=== PATIENT | female | born 1990 | race Caucasian/White ===

== ENCOUNTER → 2024-07-31 | Outpatient (CLI) | payer BC, SELFPAY ==
[2024-07-31 14:05] LABS: Collection Type, Urine Clean Catch
[2024-07-31 14:30] LABS: Basophils # (Auto) 0.1 Thou/mm3 (0.0-0.2); Basophils % (Auto) 1 % (0-2.5); Eosinophils # (Auto) 0.1 Thou/mm3 (0.0-0.5); Eosinophils % (Auto) 1 % (0-10); Hematocrit 36.4 % (36.0-46.0); Hemoglobin 12.1 g/dL (12.0-16.0); Immature Granulocytes % (Auto) 1 % (0-0); Immature Granulocytes Auto 0.05 Thou/mm3 (0.00-0.00); Lymphocytes # (Auto) 1.7 Thou/mm3 (1.0-4.8); Lymphocytes % (Auto) 16 % (10-50); Mean Corpuscular HGB Conc 33.2 g/dl (31.0-37.0); Mean Corpuscular Hemoglobin 26.7 pg (25.0-35.0); Mean Corpuscular Volume 80 fL (80-100); Monocytes # (Auto) 0.9 Thou/mm3 (0.0-0.8); Monocytes % (Auto) 9 % (0-12); Neutrophils % (Auto) 74 % (37-80); Nucleated Red Blood Cell % 0 /100 WBC (0); Platelet Count 213 Thou/mm3 (140-440); RDW Standard Deviation 41.8 fL (36.4-46.3); Red Blood Count 4.53 Miln/mm3 (4.00-5.20); White Blood Count 10.8 Thou/mm3 (3.6-11.0)
[2024-07-31 14:43] LABS: Bilirubin,Urine Negative (Negative); Blood,Urine 2+ (Negative); Clarity,Urine Clear (Clear/Hazy); Color,Urine Yellow (Lt Yel-Yel); Culture Indicated,Urine Not Indicated; Glucose, Urine Negative (Negative); Ketones,Urine Trace (Negative); Leukocyte Esterase,Urine Negative (Negative); Nitrite,Urine Negative (Negative); Protein,Urine 1+ (Neg - Trace); RBC,Urine 3 /hpf (0-3); Specific Gravity,Urine 1.026 (1.001-1.035); Squamous Epithelial Cell,Urine 2 /hpf (0-5); Urobilinogen,Urine Negative mg/dL (0.0-1.0); WBC,Urine 10 /hpf (0-5)
[2024-07-31 14:45] LABS: Alanine Aminotransferase 93 U/L (10-49); Albumin, Serum 4.1 gm/dL (3.5-5.0); Albumin/Globulin Ratio 1.7 (1.2-2.2); Alkaline Phosphatase 103 U/L (46-116); Anion Gap 10 (7-16); Aspartate Amino Transferase 63 U/L (0-34); BUN/Creatinine Ratio 15 Ratio (12-20); Bilirubin,Total 0.7 mg/dL (0.3-1.2); Blood Urea Nitrogen 12 mg/dL (9-23); C-Reactive Protein 23.4 mg/dL (0.0-0.9); Calcium 8.6 mg/dL (8.3-10.6); Calcium (Corrected) 8.6 mg/dL (8.5-10.1); Carbon Dioxide 24.2 mMol/L (20.0-31.0); Chloride 100 mMol/L (98-107); Creatinine (Component) 0.8 mg/dL (0.6-1.3); Globulin 2.4 gm/dL (2.3-3.5); Glucose 111 mg/dL (74-106); Osmolality,Calculated 268 (275-295); Potassium 3.6 mMol/L (3.4-5.1); Sodium 134 mMol/L (136-145); Total Protein 6.5 gm/dL (5.7-8.2); eGFR > 60 See Note
[2024-07-31 14:47] LABS: Sed Rate (ESR) 34 mm/hr (0-20)
[2024-07-31 15:06] LABS: Strep A Rapid Positive (Negative)
== END | disposition home or self-care (01) ==
LOC: COPL 13:32
PROVIDERS: PCP Nurse Practitioner Family; Referring Provider Nurse Practitioner Family; Visit Provider Nurse Practitioner Family
DX: R21 Rash and other nonspecific skin eruption (principal); J02.9 Acute pharyngitis, unspecified; R53.83 Other fatigue; R50.9 Fever, unspecified; Z36.85 Encounter for antenatal screening for Streptococcus B
CPT/HCPCS: 36415; 80053; 81001; 85025; 85652; 86140; 87040; 87070; 87651

== ENCOUNTER → 2024-08-11 | Outpatient (CLI) | payer BC, SELFPAY ==
[2024-08-11 12:01] LABS: Basophils # (Auto) 0.1 Thou/mm3 (0.0-0.2); Basophils % (Auto) 0 % (0-2.5); Eosinophils # (Auto) 0.3 Thou/mm3 (0.0-0.5); Eosinophils % (Auto) 2 % (0-10); Hematocrit 40.4 % (36.0-46.0); Hemoglobin 13.1 g/dL (12.0-16.0); Immature Granulocytes % (Auto) 1 % (0-0); Immature Granulocytes Auto 0.17 Thou/mm3 (0.00-0.00); Lymphocytes # (Auto) 1.4 Thou/mm3 (1.0-4.8); Lymphocytes % (Auto) 10 % (10-50); Mean Corpuscular HGB Conc 32.4 g/dl (31.0-37.0); Mean Corpuscular Volume 80 fL (80-100); Monocytes # (Auto) 0.9 Thou/mm3 (0.0-0.8); Monocytes % (Auto) 7 % (0-12); Neutrophils # (Auto) 11.1 Thou/mm3 (1.8-7.7); Neutrophils % (Auto) 80 % (37-80); Nucleated Red Blood Cell % 0 /100 WBC (0); Platelet Count 337 Thou/mm3 (140-440); RDW Standard Deviation 41.4 fL (36.4-46.3); Red Blood Count 5.04 Miln/mm3 (4.00-5.20); White Blood Count 13.9 Thou/mm3 (3.6-11.0)
[2024-08-11 12:10] LABS: Sed Rate (ESR) 54 mm/hr (0-20)
[2024-08-11 12:17] LABS: Alanine Aminotransferase 240 U/L (10-49); Albumin, Serum 4.2 gm/dL (3.5-5.0); Albumin/Globulin Ratio 1.6 (1.2-2.2); Alkaline Phosphatase 157 U/L (46-116); Anion Gap 8 (7-16); Aspartate Amino Transferase 126 U/L (0-34); BUN/Creatinine Ratio 11 Ratio (12-20); Bilirubin,Total 0.9 mg/dL (0.3-1.2); Blood Urea Nitrogen 10 mg/dL (9-23); C-Reactive Protein 14.5 mg/dL (0.0-0.9); Calcium 9.3 mg/dL (8.3-10.6); Calcium (Corrected) 9.3 mg/dL (8.5-10.1); Carbon Dioxide 26.7 mMol/L (20.0-31.0); Chloride 98 mMol/L (98-107); Creatinine (Component) 0.9 mg/dL (0.6-1.3); Globulin 2.7 gm/dL (2.3-3.5); Glucose 102 mg/dL (74-106); Osmolality,Calculated 265 (275-295); Potassium 4.4 mMol/L (3.4-5.1); Sodium 133 mMol/L (136-145); Total Protein 6.9 gm/dL (5.7-8.2); eGFR > 60 See Note
== END | disposition home or self-care (01) ==
LOC: COPL 11:09
PROVIDERS: PCP Nurse Practitioner Family; Referring Provider Nurse Practitioner Family; Visit Provider Nurse Practitioner Family
DX: Z00.00 Encounter for general adult medical examination without abnormal findings (principal); R53.83 Other fatigue; R79.82 Elevated C-reactive protein (CRP); R70.0 Elevated erythrocyte sedimentation rate; Z13.29 Encounter for screening for other suspected endocrine disorder
CPT/HCPCS: 36415; 80053; 85025; 85652; 86140

== ENCOUNTER 2024-08-12 09:13 | Emergency (ER) | payer BC, SELFPAY ==
[2024-08-12 09:18] VITALS: BP 148/104; PULSE 129; RESP 22; TEMP 36.6; O2SAT 98; BMI 44.6
[2024-08-12] MEDS: MethylPREDNISolone SOD SUCC 62.5 MG/ML 2ML VIAL 125 MG IVP (09:35)
[2024-08-12] MEDS: DiphenhydrAMINE INJ 50 MG/ML VIAL IVP (09:36)
[2024-08-12] MEDS: SODIUM CHLORIDE 0.9% 1000 ML 1,000 ML 999 ML IV (09:36)
[2024-08-12] MEDS: FAMOTIDINE INJ 10 MG/ML VIAL 2 ML 20 MG IVP (09:37)
[2024-08-12 09:38] VITALS: BP 147/112; PULSE 103; RESP 23; TEMP 37.4; O2SAT 97
--- NOTE | 2024-08-12 09:58 | EDNOTE_ITS ---
ED Allergic Reaction RME/HPI General Chief complaint: Allergic Reaction Stated complaint: ALLERGIC REACTION Time Seen by Provider: 08/12/24 09:15 Arrival date/time: 08/12/24 09:13 RME / HPI RME / HPI narrative: 34 year old female presents to the ED for evaluation of a generalized rash beginning 15 days ago. Reports the rash initially was located most to the upper trunk and now located throughout her body, although improving in some areas. States she consulted with her PCP when the rash first began and performed labs including a strep test that was positive. Although states the throat culture was negative and started on a 12-day course of Penicillin and Prednisone for possible Scarlet fever. Says since starting the Penicillin her rash is different . Rash initially began to the upper trunk and now all throughout, most to the chest and abdomen. Not improved with Benadryl. Reports she had been evaluated twice in the ER at [facility], last visit 1 week ago, for similar rash that was accompanied by generalized weakness and joint pain. States both times she had labs drawn and was discharged home with instructions to follow up with foreign broadcast specialist. Additionally reports she has had three virtual appointments with Marie Encinas working with Dr. Star Trejo at the [facility]. States she had outpatient labs drawn yesterday for an in-person appointment scheduled today. Denies any fevers, chills, chest pain, cough, shortness of breath, abdominal pain, itching sensation, n/v. Denies any lesions to the bottom of her feet. Related Data Home Medications ?Medication ?Instructions ?Recorded ?Confirmed No Known Home Medications 08/12/24 08/12/24 Allergies Allergy/AdvReac Type Severity Reaction Status Date / Time No Known Allergies Allergy Verified 08/12/24 09:50 Review of Systems Review of Systems Narrative Review of Systems: Constitutional: DENIES; Fevers Eyes: DENIES; Loss of vision Head/Ear/Nose: DENIES; Loss of hearing Throat: DENIES; Dysphagia Cardiovascular: DENIES; Chest pain, dyspnea or syncope Respiratory: DENIES; Shortness of breath Gastrointestinal: DENIES; Rectal bleeding or melena. Genitourinary: DENIES; Dysuria (painful or difficult urination) Musculoskeletal: DENIES; Arthralgia (pain in a joint),; Skin: SEE HPI + Rash Neurological: DENIES; Loss of function or movement Psychiatric: DENIES; recent major life stressor, emotional problem, illicit drug use or abuse Endocrinology: DENIES; Weight change Hematologic/Lymphatic: DENIES; Abnormal bruising Allergic/Immunologic: DENIES; Urticaria (hives) Past Medical History Past Medical History CARDIAC: Negative Congestive Heart Failure RESPIRATORY: Negative Chronic Obstructive Pulmonary Disease (COPD) GENITOURINARY: Negative Renal Disease ENDOCRINE: Negative Diabetes Mellitus Type 1 or Diabetes Mellitus Type 2 Social History SMOKING STATUS: Never smoker ED Exam Narrative Physical exam: Physical Exam: General: The vital signs were reviewed. The patient is non-toxic, in no apparent distress and appears healthy with a patent airway, no respiratory distress and has no apparent circulatory problems. Head & Scalp: Normocephalic, atraumatic. Face: Appears normal and is without lesions, deformity. Ears: Left external pinna appears normal. Right external pinna appears normal. Eyes: The sclera is anicteric. No obvious photophobia. The Left and Right Orbit/Lid/Conjunctiva appears normal without swelling, discoloration or injection. Nose: The nose is without deformity, discharge or tenderness; Throat: Appears normal. The mucous membranes are pink and moist without exudates, redness or mass seen. The tongue appears normal. Neck: The neck is supple and no apparent mass or adenopathy. Chest: The chest wall is normal in size and symmetry and has no chest wall tenderness or crepitus. The patient displays normal ventilator effort without retractions, accessory muscle use and has adequate air movement bilaterally with no wheezes and no rales. Cardiovascular: Regular rate and rhythm; No murmurs, rubs, or gallops; Gastrointestinal: The abdomen appears normal. No obvious hernias or mass. The abdomen is soft and benign, non-distended, with no pain, no guarding and no rebound tenderness. Bowel sounds are present and normal sounding. No CVA tenderness. Genitourinary: Back/Spine: Extremities/Musculoskeletal/lymphatic: The bilateral upper and lower extremities are warm. There is no evidence of arterial insufficiency. There is no evidence of venous insufficiency/edema. The patient spontaneously moves bilateral upper and lower extremities with no pain and no limitation of movement. There is no apparent, injury or trauma. Skin: Maculopapular rash to the anterior trunk, not on back, and down to the groin. Very scattered below the knee. There are lesions on the palms but not on the soles, nothing in the oral cavity. Mental status/Psychiatric: Mental status is appropriate for age. The patient has no apparent delusions, visual hallucinations, no apparent audible hallucinations. The patient has no apparent suicidal thoughts/ideation and no apparent homicidal thoughts/ideation. Neurological: The patient is awake, alert, interactive, cordial, cooperative and is oriented to name and situation. The patient follows commands and answers historical question with no impairment. There is no visual disturbance apparent. The pupils are equal and reactive bilaterally with normal eye movements and no diplopia The bilateral upper and lower extremities have normal strength, normal range of motion and normal functioning. The gait, station and balance appear to be baseline with no acute change Course Quality Measures none Orders Category Date Time Status Insert IV NOW Care 08/12/24 09:20 Completed DiphenhydrAMINE INJ [Benadryl Inj] Med 08/12/24 09:20 Discontinued 50 mg IVP X1 ONE Famotidine Inj [Pepcid Inj] Med 08/12/24 09:20 Discontinued 20 mg IVP X1 ONE MethylPREDNISolone.* [SoluMEDROL Inj] Med 08/12/24 09:20 Discontinued 125 mg IVP X1 ONE Sodium Chloride 0.9% 1000 ml [Ns] 1,000 ml Med 08/12/24 09:20 Discontinued IV 999 mls/hr Vital Signs Vital signs: Vital Signs Temperature 97.8 F 08/12/24 09:18 Pulse Rate 129 H 08/12/24 09:18 Respiratory Rate 22 H 08/12/24 09:18 Blood Pressure 148/104 H 08/12/24 09:18 Pulse Oximetry (%) 98 08/12/24 09:18 Oxygen Delivery Method Room Air 08/12/24 09:18 Pulse ox is 98% on room air which is adequate. Allergic Reaction MDM Narrative MDM Narrative:: Rena Lucio am scribing for and in the presence of Dr. Mckeon. Patient 34-year-old who comes in with a continuing rash that initially started on the back and trunk and has transformed into more rash on the anterior chest the back is resolved and now its on the anterior thighs and lesions on the bilateral palms. Patient has been seen multiple times at [facility] [place] and then had tele medicine visits had a positive strep screen with a negative culture and was put on antibiotics for 12 days has had a couple rounds of steroids in the meantime with no improvement of the rash. Patient comes in today as she still has an itchy irritated rash. Patient also had a medical workup in the outpatient where she had CRPs that were highly positive and but they are trending downward now. No review of old records and I also called the patient's nurse practitioner Marie and spoke with the doctor at the clinic Dr. Trejo both I spent a good 10 minutes on the phone with discussing the case at great length and all of us feel that this rash is evolving and trending in a positive direction and the etiology of this is unclear although it is presumed to be strep related since one of the strep screens were positive but the culture was negative. Note there is normal renal function so there is no reasonably there is any and there is no carditis as t there is no tachycardia there is no chest pain no shortness of breath and other than itchy rash he does not appear to have any ot her illness. There are no systemic symptoms noted today. I see no reason to do any further testing. But part of the discussion has close follow-up with the primary care doctors and get referred to a foreign broadcast specialist. No reason to continue any antibiotics and no reason to continue steroids at this time since the CRP is trending downward and this rash appears to have its own set course and will pro bably resolve over another to 3 weeks. Of course there could be many other possibilities to this rash including serum sickness and other things in the close follow-up will be important. I spent easily 40 minutes in consultation calls as there is lots of anxiety and stress over why it is not getting better. Note there is also been no travel out of the area. There is been no tick bites or bug bites. And there were no medicines preceding the onset of the rash. According to the PA the patient did have a fever early on and a sore throat but the patient denies having a sore throat now.. No Monospot was done by this point it would not change anything. After multiple long discussions patient is quite anxious about the situation she admitted that she had a fever of 104.0 and has had cold chills and intermittent possible fevers over the past couple weeks but no documented temperatures. The discussion of tampons and toxic shock syndrome came up several times so we did a bimanual exam with nurse present and there was no foreign body found in her vaginal vault. She had no cervical motion tenderness. She has no tenderness in the vaginal area. At the end of all that the same precautions were given and the patient was advised to return if getting worse and her primary care doctors are fully aware and she will follow-up with them. Patient data External records reviewed:: [facility] previous records (I reviewed outpatient labs drawn 07/31/2024 and 08/11/2024) Clinical information provided by:: patient Social determinants that could affect healthcare access:: none Patient has the following chronic illnesses:: None reported How is presenting disease/condition affected by chronic disease/condition?: no chronic disease Evaluation data The following diagnostics were reviewed and interpreted by me:: other (specify) (None ) Lab and/or radiology exams considered but not ordered:: None Interpretation Summary: As noted above Medications / Prescriptions Medications or Prescriptions considered but not ordered:: None Medication administrations:: Medication Administration History Discontinued Medications Diphenhydramine HCl (Diphenhydramine Inj 50 Mg/Ml Vial) 50 mg IVP X1 ONE Stop: 08/12/24 09:21 Last Admin: 08/12/24 09:36 Dose: 50 mg Documented By: CONCHITA Famotidine (Famotidine Inj 10 Mg/Ml Vial 2 Ml) 20 mg IVP X1 ONE Stop: 08/12/24 09:21 Last Admin: 08/12/24 09:37 Dose: 20 mg Documented By: CONCHITA Sodium Chloride (Ns) 1,000 mls @ 999 mls/hr IV .Q1H1M ONE Stop: 08/12/24 10:20 Last Infusion: 08/12/24 11:08 Dose: Infused Documented By: Admin: 08/12/24 09:36 Dose: 999 mls/hr Documented By: CONCHITA Methylprednisolone Sodium Succinate (Methylprednisolone Sod Succ 62.5 Mg/Ml 2ml Vial) 125 mg IVP X1 ONE Stop: 08/12/24 09:21 Last Admin: 08/12/24 09:35 Dose: 125 mg Documented By: CONCHITA See above Consultations Consultation(s) initiated? (list below): Yes Consultation #1 (Physician, Specialty, Details): I had a long discussion with Dr. Star Trejo. Discussed patients PMHx, HPI, ED course, exam findings. States he will see the patient in his office. Time: 10:40 Consultation #2 (Physician, Specialty, Details): I had a 10 minute long conversation with patients PCP Marie Encinas working with Dr. Star Trejo. We discussed todays exam findings and labs as noted above. Time: 12:20 Diagnosis Differential Diagnosis allergic reaction: allergic reaction, contact dermatitis, adverse reaction to drug, viral enanthem and urticaria Most likely diagnosis given after review of the tests above:: Generalized maculopapular rash Admission Indicated Admission indicated?: not indicated Admission Request Was there a request for admission?: No Disposition Plan Disposition Plan: Discharge Discharge Attestation Discharge Attestation: The patient and all family members were given an opportunity to ask questions and understood the discharge instructions. Discharge instructions specifically effects, indications for sooner follow up or return to the emergency department, and the expected course of current diagnosis. Patient condition: Stable Discharge Plan Plan Patient Disposition: HOME (Self Care) Prescriptions/Referrals Prescriptions/Med Rec: No Action No Known Home Medications Referrals: MARIE COSTELLO [Primary Care Provider] - In 1 week Problem List Clinical Impression: Generalized maculopapular rash Patient/Caregiver Discharge Instructions Additional Instructions: The cause of your macular papular pruritic rash is uncertain although it could be related to strep from 3 weeks ago. I spoke to your doctor and your PA Marie and they want to see you in the office next 1 to 2 days. They should be calling you for an appointment or you can recontact them tomorrow given heard from them. If you start getting fever worse please return for reevaluation. Continue using Benadryl for itching. Stop the antibiotic. At this point it is a watch and wait and see how this evolves and I suspect they will continue to get better as we discussed. Note the CRPs are decreasing which is a good sign that your inflammation is decreasing. Will not surprise me if this rash takes another 2 to 3 weeks before it fully resolves. If you are having bleeding anywhere fevers getting sicker in any way besides itchy or you are uncertain please return for reevaluation. Also as we discussed if you are having fever temperature 100.4 or greater please document this with thermometer and call your doctor or return for reevaluation. Print Language: Welsh Stand Alone Forms: Patient Portal Info Letter
[2024-08-12 10:04] VITALS: BP 147/83; PULSE 95; RESP 24; TEMP 36.8; O2SAT 98
[2024-08-12 12:41] VITALS: BP 154/58; PULSE 89; RESP 13; TEMP 36.8; O2SAT 97
== END 2024-08-12 13:24 | disposition home or self-care (01) ==
PROVIDERS: Emergency Provider Emergency Medicine; PCP Nurse Practitioner Family
DX: R21 Rash and other nonspecific skin eruption (principal)
CPT/HCPCS: 96361; 96374; 96375; 99284; J1200; J2919; J3490; J7030

== ENCOUNTER → 2024-08-12 | Outpatient (CLI) | payer BC, SELFPAY ==
[2024-08-12 16:53] LABS: Syphilis Nonreactive (Nonreactive)
== END | disposition home or self-care (01) ==
PROVIDERS: PCP Nurse Practitioner Family; Referring Provider Nurse Practitioner Family; Visit Provider Nurse Practitioner Family
DX: Z00.00 Encounter for general adult medical examination without abnormal findings (principal); R21 Rash and other nonspecific skin eruption; L50.9 Urticaria, unspecified; Z13.89 Encounter for screening for other disorder
CPT/HCPCS: 36415; 86780

== ENCOUNTER → 2024-09-08 | Outpatient (CLI) | payer BC, SELFPAY ==
[2024-09-08 16:46] LABS: Misc Send Out* See Sep Rpt
[2024-09-08 17:28] LABS: Basophils # (Auto) 0.1 Thou/mm3 (0.0-0.2); Basophils % (Auto) 1 % (0-2.5); Eosinophils # (Auto) 0.2 Thou/mm3 (0.0-0.5); Eosinophils % (Auto) 2 % (0-10); Hematocrit 37.5 % (36.0-46.0); Immature Granulocytes % (Auto) 0 % (0-0); Immature Granulocytes Auto 0.02 Thou/mm3 (0.00-0.00); Lymphocytes # (Auto) 2.9 Thou/mm3 (1.0-4.8); Lymphocytes % (Auto) 32 % (10-50); Mean Corpuscular Hemoglobin 26.5 pg (25.0-35.0); Mean Corpuscular Volume 83 fL (80-100); Monocytes # (Auto) 0.6 Thou/mm3 (0.0-0.8); Monocytes % (Auto) 7 % (0-12); Neutrophils # (Auto) 5.2 Thou/mm3 (1.8-7.7); Neutrophils % (Auto) 58 % (37-80); Nucleated Red Blood Cell % 0 /100 WBC (0); Platelet Count 348 Thou/mm3 (140-440); RDW Standard Deviation 45.5 fL (36.4-46.3); Red Blood Count 4.52 Miln/mm3 (4.00-5.20); White Blood Count 9.1 Thou/mm3 (3.6-11.0)
[2024-09-08 17:40] LABS: Alanine Aminotransferase 13 U/L (10-49); Albumin, Serum 4.6 gm/dL (3.5-5.0); Albumin/Globulin Ratio 1.9 (1.2-2.2); Alkaline Phosphatase 112 U/L (46-116); Anion Gap 11 (7-16); Aspartate Amino Transferase 12 U/L (0-34); BUN/Creatinine Ratio 15 Ratio (12-20); Bilirubin,Total 0.4 mg/dL (0.3-1.2); Blood Urea Nitrogen 15 mg/dL (9-23); Calcium 9.5 mg/dL (8.3-10.6); Calcium (Corrected) 9.5 mg/dL (8.5-10.1); Carbon Dioxide 24.9 mMol/L (20.0-31.0); Chloride 103 mMol/L (98-107); Globulin 2.4 gm/dL (2.3-3.5); Glucose 95 mg/dL (74-106); Osmolality,Calculated 278 (275-295); Potassium 3.8 mMol/L (3.4-5.1); Sodium 139 mMol/L (136-145); eGFR > 60 See Note
[2024-09-13 23:33] LABS: A. alternata (M6) IgE <0.10 kU/L; A. fumigatus (M3) Class 0; A. fumigatus (M3) IgE <0.10 kU/L; Alder (T2) Class 0; Alder (T2) IgE <0.10 kU/L; Bermuda Grass (G2) Class 0; Bermuda Grass (G2) IgE <0.10 kU/L; Birch (T3) Class 0; Birch (T3) IgE <0.10 kU/L; C. herbarum (M2) Class 0; C. herbarum (M2) IgE <0.10 kU/L; Cat Dander (e1) Class 0; Cat Dander (e1) IgE <0.10 kU/L; Cockroach (I6) IgE <0.10 kU/L; Common Pigweed (W14) IgE 0.13 kU/L; Common Ragweed (W1) Class 0; Common Ragweed (W1) IgE <0.10 kU/L; D. farinae (D2) Class 0; D. farinae (D2) IgE <0.10 kU/L; D. pteronyssinus (D1) Class 0; D. pteronyssinus (D1) IgE <0.10 kU/L; Dog Dander (E5) IgE <0.10 kU/L; Elm (T8) IgE <0.10 kU/L; Mountain Cedar (T6) Class 0; Mountain Cedar (T6) IgE <0.10 kU/L; Mouse Ur Prot (E72) IgE <0.10 kU/L; Mugwort (W6) Class 0; Mugwort (W6) IgE <0.10 kU/L; Oak White (T7) Class 0; Oak White (T7) IgE <0.10 kU/L; Olive Tree (T9) Class 0; Olive Tree (T9) IgE <0.10 kU/L; P. notatum (M1) Class 0; P. notatum (M1) IgE <0.10 kU/L; Russian Thistle (W11) Class 0; Russian Thistle (W11) IgE <0.10 kU/L; Sycamore (T11) IgE <0.10 kU/L; Timothy Grass (G6) IgE <0.10 kU/L; White Mulberry (T70) IgE <0.10 kU/L
[2024-09-14 05:09] LABS: Codfish (f3) IgE <0.10 kU/L; Cow's Milk (f2) Class 0; Cow's Milk (f2) IgE <0.10 kU/L; Crab (F23) IgE <0.10 kU/L; Egg White (F1) Class 0; Egg White (F1) IgE <0.10 kU/L; Egg Yolk (F75) IgE <0.10 kU/L; Lobster (F80) IgE <0.10 kU/L; Salmon (F41) IgE <0.10 kU/L; Shrimp (F24) IgE <0.10 kU/L; Soybean (F14) Class 0; Soybean (F14) IgE <0.10 kU/L; Tuna (F40) IgE <0.10 kU/L; Wheat (F4) Class 0; Wheat (F4) IgE <0.10 kU/L
[2024-09-14 07:02] LABS: A. alternata (M6) Class 0; Cockroach (I6) Class 0; Common Pigweed (W14) Class 0/1; Dog Dander (E5) Class 0; Elm (T8) Class 0; IgE, Total, Serum 19 kU/L (114 OR LESS); Mouse Ur Prot (E72) Class 0; Sycamore (T11) Class 0; Timothy Grass (G6) Class 0; White Mulberry (T70) Class 0
[2024-09-14 07:04] LABS: Codfish (f3) Class 0; Crab (F23) Class 0; Egg Yolk (F75) Class 0; Lobster (F80) Class 0; Salmon (F41) Class 0; Shrimp (F24) Class 0; Tuna (F40) Class 0
== END | disposition home or self-care (01) ==
LOC: COPL 16:21
PROVIDERS: PCP Nurse Practitioner Family; Referring Provider Nurse Practitioner Family; Visit Provider Nurse Practitioner Family
DX: Z00.00 Encounter for general adult medical examination without abnormal findings (principal); R21 Rash and other nonspecific skin eruption; L50.9 Urticaria, unspecified; R06.00 Dyspnea, unspecified; Z13.0 Encounter for screening for diseases of the blood and blood-forming organs and certain disorders involving the immune mechanism; Z13.29 Encounter for screening for other suspected endocrine disorder; Z13.21 Encounter for screening for nutritional disorder; Z13.220 Encounter for screening for lipoid disorders; Z12.11 Encounter for screening for malignant neoplasm of colon
CPT/HCPCS: 36415; 80053; 82785; 85025; 86003